=== PATIENT | female | born 1940 | race Caucasian/White ===

== ENCOUNTER 2020-01-30 19:31 | Outpatient (CLI) | payer MEDICARE, BC | END 2020-01-30 19:32 | disposition EMS.NT | LOC: EMS 19:31 | PROVIDERS: ATTEND Surgery | DX: M25.561 Pain in right knee (principal); W18.30XA Fall on same level, unspecified, initial encounter; Z96.651 Presence of right artificial knee joint ==

== ENCOUNTER 2020-06-09 10:17 | Outpatient (CLI) | payer MEDICARE, BC | END 2020-06-09 10:18 | disposition EMS.NT | LOC: EMS 10:17 | PROVIDERS: ATTEND Surgery | DX: S01.81XA Laceration without foreign body of other part of head, initial encounter (principal); W01.190A Fall on same level from slipping, tripping and stumbling with subsequent striking against furniture, initial encounter; Y92.009 Unspecified place in unspecified non-institutional (private) residence as the place of occurrence of the external cause ==

== ENCOUNTER 2023-03-28 17:37 | Outpatient (CLI) | payer MEDICARE, BC | END 2023-03-28 23:59 | disposition E | LOC: EMS 17:37 | DX: I46.9 Cardiac arrest, cause unspecified (principal) ==